=== PATIENT | male | born 1990 | race American Indian/Alaskan Native ===

== ENCOUNTER 2021-02-26 21:19 | Emergency (ER) | payer MEDICAID ==
[2021-02-26 22:32] VITALS: BP 124/84; PULSE 62
[2021-02-26] MEDS ORDERED: Acetaminophen/HYDROcodone 325-5 MG Tab PO ONE (22:37)
--- NOTE | 2021-02-26 22:41 | EDM.PDOC ---
ED HPI GENERAL MEDICAL PROBLEM - General Chief Complaint: Lower Extremity Injury/Pain Stated Complaint: RIGHT ANKLE PAIN Time Seen by Provider: 02/26/21 22:03 Source of Information: Reports: Patient, RN History Limitations: Reports: No Limitations - History of Present Illness INITIAL COMMENTS - FREE TEXT/NARRATIVE: chief complaint: right ankle pain This is a 30 year old male presents to the ER for evaluation of right ankle pain. Reports at 9 pm, at his home, was going down the stairs and tripped/slipped on spilled pop. injury to the right foot and ankle. has pain with weight bearing. no other injuries noted. 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 Right Ankle Pain Score (Numeric/FACES): 8 - Related Data Allergies Allergy/AdvReac Type Severity Reaction Status Date / Time Penicillins Allergy Rash Verified 02/26/21 22:23 Home Meds: Home Meds NK [No Known Home Meds] 02/26/21 [History] Past Medical History - Past Health History Medical/Surgical History: Denies Medical/Surgical History HEENT History: Reports: Impaired Vision - Infectious Disease History Infectious Disease History: Reports: Chicken Pox Social & Family History - Tobacco Use Tobacco Use Status *Q: Current Every Day Tobacco User Years of Tobacco use: 10 Packs/Tins Daily: 1 Used Tobacco, but Quit: No - Caffeine Use Caffeine Use: Reports: Coffee, Energy Drinks, Soda - Recreational Drug Use Recreational Drug Use: No Review of Systems - Review of Systems Review Of Systems: See Below Constitutional: Reports: Other (right ankle pain - hopped into the ER) Eyes: Reports: No Symptoms Ears: Reports: No Symptoms Nose: Reports: No Symptoms Mouth/Throat: Reports: No Symptoms Respiratory: Reports: No Symptoms Cardiovascular: Reports: No Symptoms GI/Abdominal: Reports: No Symptoms Genitourinary: Reports: No Symptoms Musculoskeletal: Reports: Foot Pain (5th metatarsal edema and pain), Joint Pain (right ankle- lateral edema and point tenderness) Skin: Reports: Bruising (right ankle and lateral foot) Neurological: Reports: No Symptoms Psychiatric: Reports: No Symptoms ED EXAM, GENERAL - Physical Exam Exam: See Below Exam Limited By: No Limitations General Appearance: Alert, WD/WN, Mild Distress Respiratory/Chest: No Respiratory Distress Cardiovascular: Normal Peripheral Pulses Extremities: Limited Range of Motion (right ankle pain with wt.bearing and any movement. right 5th toe is pain with movement), Other (right lateral malleolus edema, pain with any movement, unable to bear wt.) Neurological: Alert, Oriented, Normal Cognition Psychiatric: Normal Affect, Normal Mood Skin Exam: Warm, Dry, Intact, Normal Color Lymphatic: No Adenopathy Course - Vital Signs Last Recorded V/S: Last Vital Signs Temp 97.7 F 02/26/21 22:30 Pulse 62 02/26/21 22:30 Resp 16 02/26/21 22:30 BP 124/84 02/26/21 22:30 Pulse Ox 98 02/26/21 22:30 - Orders/Labs/Meds Orders: Active Orders 24 hr Category Date Time Status Ankle Min 3V Rt [CR] Stat Exams 02/26/21 22:37 Taken Foot Comp Min 3V Rt [CR] Stat Exams 02/26/21 22:41 Taken DME for Discharge [COMM] Urgent Oth 02/26/21 23:32 Ordered Meds: Medications Discontinued Medications Generic Name Dose Route Start Last Admin Trade Name Jeremy PRN Reason Stop Dose Admin Hydrocodone Bitart/Acetaminophen 1 tab 02/26/21 22:37 02/26/21 22:41 Acetaminophen/Hydrocodone 325-5 Mg Tab PO 02/26/21 22:38 1 tab ONETIME ONE Administration - Re-Assessments/Exams Free Text/Narrative Re-Assessment/Exam: 02/26/21 22:51 discussed with Mr. Drew will treat for pain with ice pack and Hydrocodone 5-325 mg one tablets imaging of right ankle and right foot to rule out any acute bony injury. Mr. Drew agrees with plan of care. 02/26/21 23:33 X-ray negative for acute fracture will treat for sprain- rest, ice, elevate, referral to Orthopedic, medicate for pain work slip Mr. Drew agrees with plan of care Departure - Departure Time of Disposition: 23:42 Disposition: Home, Self-Care 01 Condition: Good Clinical Impression: Right ankle sprain - Discharge Information *PRESCRIPTION DRUG MONITORING PROGRAM REVIEWED*: Not Applicable *COPY OF PRESCRIPTION DRUG MONITORING REPORT IN PATIENT WALT: Not Applicable Instructions: Ankle Sprain, [id number], Pain Medicine Instructions, [id number] Referrals: PCP,None [Primary Care Provider] - Forms: ED Department Discharge, ED Return to Work/School Form Care Plan Goals: Right ankle sprain -right ankle stirrups -crutches -Hydrocodone 5-325 mg one every 4 to 6 hours as needed for pain #6 -Motrin 600 mg po every 6 to 8 hours as needed for pain -Referral to Orthopedics for recheck next week -work slip -advised rest, elevate, ice for 2 days, non-wt bearing for 3 to 5 days Return to ER for any concerns. Sepsis Event Note (ED) - Focused Exam Vital Signs: Vital Signs Temp Pulse Resp BP Pulse Ox 02/26/21 22:30 97.7 F 62 16 124/84 98 - Problem List & Annotations (1) Right ankle sprain SNOMED Code(s): 27923578 Code(s): S93.401A - SPRAIN OF UNSPECIFIED LIGAMENT OF RIGHT ANKLE, INIT ENCNTR Status: Acute Priority: High Current Visit: Yes Qualifiers: Encounter type: initial encounter Involved ligament of ankle: other ligament Qualified Code(s): S93.491A - Sprain of other ligament of right ankle, initial encounter - Problem List Review Problem List Initiated/Reviewed/Updated: Yes - My Orders Last 24 Hours: My Active Orders 02/26/21 22:37 Ankle Min 3V Rt [CR] Stat 02/26/21 22:41 Foot Comp Min 3V Rt [CR] Stat 02/26/21 23:32 DME for Discharge [COMM] Urgent - Assessment/Plan Last 24 Hours: My Active Orders 02/26/21 22:37 Ankle Min 3V Rt [CR] Stat 02/26/21 22:41 Foot Comp Min 3V Rt [CR] Stat 02/26/21 23:32 DME for Discharge [COMM] Urgent Plan: Right ankle sprain -right ankle stirrups -crutches -Hydrocodone 5-325 mg one every 4 to 6 hours as needed for pain #6 -Motrin 600 mg po every 6 to 8 hours as needed for pain -Referral to Orthopedics for recheck next week -work slip -advised rest, elevate, ice for 2 days, non-wt bearing for 3 to 5 days Return to ER for any concerns.
--- NOTE | 2021-02-27 09:44 | CR ---
FOOT RIGHT 3 views CLINICAL HISTORY:Injury FINDINGS:No fracture or dislocation is identified. No osseous lesions are seen. Impression: Negative Ankle Min 3V Rt CLINICAL HISTORY: Injury FINDINGS: The soft tissues are swollen over the lateral malleolus. No acute fracture or dislocation is noted. Ankle mortise is intact. Articular surfaces are smooth Impression: No fracture or dislocation
== END 2021-02-27 00:05 | disposition home or self-care (01) ==
LOC: JP.ED 21:19
DX: S93.401A Sprain of unspecified ligament of right ankle, initial encounter (principal); Z88.0 Allergy status to penicillin; Z72.0 Tobacco use; W01.0XXA Fall on same level from slipping, tripping and stumbling without subsequent striking against object, initial encounter; Y92.009 Unspecified place in unspecified non-institutional (private) residence as the place of occurrence of the external cause
CPT/HCPCS: 73610; 73630; 99283; A9270